=== PATIENT | male | born 1990 | race African-American/Black ===

== ENCOUNTER 2018-11-25 21:24 | Emergency (ER) | payer OTHER ==
[~2018-11-25] VITALS: Ht 185.4 cm; Wt 67.8 kg
[2018-11-25] MEDS ORDERED: LIDOCAINE VISCOUS 2% SOLN 15ML UDC SS ONE (23:15)
[2018-11-25] MEDS ORDERED: KETOROLAC 60 MG/2 ML VIAL (J1885) IM ONE (23:15)
[2018-11-25 23:31] VITALS: BP 118/72
== END 2018-11-25 23:30 | disposition home or self-care (01) ==
LOC: M ED 21:24
DX: J02.9 Acute pharyngitis, unspecified (principal)
CPT/HCPCS: 87880; 96372; 99284; J1885

== ENCOUNTER 2018-11-27 14:19 | Emergency (ER) | payer OTHER ==
[~2018-11-27] VITALS: Ht 185.4 cm; Wt 66.6 kg
[2018-11-27 18:31] LABS: BASO % 0.9 % (0.0-1.0); EOS # 0.1 10^3/uL (0.0-0.50); EOS % 2.7 % (0.0-3.0); HEMATOCRIT 42.1 % (42.0-52.0); HEMOGLOBIN 14.3 g/dl (13.5-17.5); LYMPH # 1.2 10^3/uL (1.5-6.5); LYMPH % 26.7 % (24.0-44.0); MEAN CORPUSCULAR VOLUME 88.3 fl (80.0-96.0); MONO # 0.7 10^3/uL (0.0-0.8); MONO % 15.2 % (0.0-5.0); NEUTROPHILS # 2.4 10^3/uL (1.8-7.7); NEUTROPHILS % 54.3 % (36.0-66.0); PLATELET COUNT, AUTOMATED 301 10^3/uL (150-450); RED BLOOD COUNT 4.77 10^6/uL (4.30-6.10); WHITE BLOOD COUNT 4.4 10^3/uL (4.0-10.0)
[2018-11-27 18:52] LABS: BLOOD UREA NITROGEN 12 MG/DL (7-18); CALCIUM LEVEL 9.6 MG/DL (8.5-10.1); CARBON DIOXIDE LEVEL 30 MEQ/L (21-32); CHLORIDE LEVEL 104 MEQ/L (98-107); CREATININE FOR GFR 0.95 MG/DL (0.70-1.30); GLOMERULAR FILTRATION RATE > 60.0 (>60); GLUCOSE, FASTING 84 MG/DL (70-100); POTASSIUM SERUM 4.4 MEQ/L (3.5-5.1); SODIUM LEVEL 140 MEQ/L (136-145)
[2018-11-27 18:54] LABS: MONO SCRN NEGATIVE (NEGATIVE)
[2018-11-27] MEDS ORDERED: CEFD300CAP PO (19:00)
[2018-11-27 19:07] VITALS: BP 117/67
== END 2018-11-27 19:12 | disposition home or self-care (01) ==
LOC: M ED 14:19
DX: J03.90 Acute tonsillitis, unspecified (principal); Z79.01 Long term (current) use of anticoagulants

== ENCOUNTER 2020-01-27 22:01 | Emergency (ER) | payer OTHER ==
[~2020-01-27] VITALS: Ht 185.4 cm; Wt 74.9 kg
[~2020-01-27 22:01] MED LIST: CEFD300CAP PO
[2020-01-27] MEDS ORDERED: TRAZ-189 PO (22:09)
[2020-01-27] MEDS ORDERED: NAPR220C PO (22:09)
[2020-01-27 23:31] LABS: BASO # 0.1 10^3/uL (0.0-0.2); BASO % 0.6 % (0.0-1.0); EOS % 0.2 % (0.0-3.0); HEMOGLOBIN 14.2 g/dl (13.5-17.5); LYMPH # 0.9 10^3/uL (1.5-5.0); LYMPH % 10.7 % (24.0-44.0); MEAN CORPUSCULAR HEMOGLOBIN 29.3 pg (27.0-33.0); MEAN CORPUSCULAR HGB CONC 33.8 g/dl (32.0-36.5); MEAN CORPUSCULAR VOLUME 86.8 fl (80.0-96.0); MONO # 1.6 10^3/uL (0.0-0.8); MONO % 19.5 % (0.0-5.0); NEUTROPHILS # 5.5 10^3/uL (1.5-8.5); NEUTROPHILS % 68.8 % (36.0-66.0); PLATELET COUNT, AUTOMATED 225 10^3/uL (150-450); RED BLOOD COUNT 4.84 10^6/uL (4.30-6.10)
[2020-01-28 00:03] LABS: BLOOD UREA NITROGEN 8 MG/DL (7-18); CALCIUM LEVEL 8.9 MG/DL (8.5-10.1); CARBON DIOXIDE LEVEL 30 MEQ/L (21-32); CHLORIDE LEVEL 103 MEQ/L (98-107); CREATININE FOR GFR 1.18 MG/DL (0.70-1.30); GLOMERULAR FILTRATION RATE > 60.0 (>60); GLUCOSE, FASTING 81 MG/DL (70-100); POTASSIUM SERUM 3.8 MEQ/L (3.5-5.1); SODIUM LEVEL 139 MEQ/L (136-145)
--- NOTE | 2020-01-28 00:45 | REPVR ---
PROCEDURE INFORMATION: Exam: XR Chest, 1 View Exam date and time: 01/28/2020 12:41 AM Age: 29 years old Clinical indication: Other: Sepsis/ shock; Additional info: Sepsis/shock TECHNIQUE: Imaging protocol: XR of the chest Views: 1 view. COMPARISON: No relevant prior studies available. FINDINGS: Lungs: Degree of lung inflation is normal. No evidence of pulmonary edema. No focal consolidation or parenchymal lung mass. Pleural space: No pleural effusion or pneumothorax. Heart/Mediastinum: Cardiac silhouette appears normal. No adenopathy or hilar mass. Bones/joints: Osseous structures show no concerning abnormality. IMPRESSION: No acute or focal cardiopulmonary process. Electronically signed by: Jesse Pina On 01/28/2020 00:45:46 AM
[2020-01-28] MEDS ORDERED: AUGM875T28 PO (01:53)
[2020-01-28 02:15] VITALS: BP 137/82
[2020-01-28] MEDS ORDERED: AUGMENTIN 875 MG TAB PO ONE (02:15)
--- NOTE | 2020-01-29 08:11 | ECGEPIP ---
[facility] - ED Test Date: 2020-01-28 Pat Name: DELMI PATEL Department: Room: - Gender: Male [employer]: : 1990 Requested By: JEREMY Gallegos Order Number: [id number] Reading MD: Yariel Alonso Measurements Intervals [place] Rate: 102 P: 71 MI: 165 QRS: 88 QRSD: 98 T: 2 QT: 313 QTc: 409 Interpretive Statements SINUS TACHYCARDIA NONSPECIFIC T-WAVE ABNORMALITY NO PRIORS FOR COMPARISON Electronically Signed on 01-29-2020 8:11:34 EDT by Yariel Alonso
== END 2020-01-28 02:24 | disposition home or self-care (01) ==
LOC: M ED 22:01
DX: J06.9 Acute upper respiratory infection, unspecified (principal); R00.0 Tachycardia, unspecified

== ENCOUNTER 2020-03-10 09:45 | Emergency (ER) | payer OTHER ==
[~2020-03-10] VITALS: Ht 185.4 cm; Wt 73.9 kg
[~2020-03-10 09:45] MED LIST changes: +AUGM875T28 PO; +NAPR220C PO; +TRAZ-189 PO
[2020-03-10] MEDS ORDERED: GI COCKTAIL 50ML BTL(HYOSCYAMINE/MAALOX/LIDOCAINE VISCOUS)(1:3:1) PO ONE (10:30)
--- NOTE | 2020-03-10 10:43 | REP ---
INDICATION: midsternal chest pain COMPARISON: 01/28/2020 TECHNIQUE: PA and lateral. FINDINGS: The mediastinum and cardiac silhouette are normal. The lung mesa are clear and without acute consolidation, effusion, or pneumothorax. The skeletal structures are intact and normal. IMPRESSION: No acute cardiopulmonary process. <Electronically signed by Taco Orellana > 03/10/20 1138
[2020-03-10 10:50] LABS: BASO # 0.1 10^3/uL (0.0-0.2); BASO % 0.8 % (0.0-1.0); EOS # 0.5 10^3/uL (0.0-0.5); EOS % 8.3 % (0.0-3.0); HEMATOCRIT 40.7 % (42.0-52.0); HEMOGLOBIN 13.5 g/dl (13.5-17.5); LYMPH # 1.4 10^3/uL (1.5-5.0); LYMPH % 21.8 % (24.0-44.0); MEAN CORPUSCULAR HGB CONC 33.2 g/dl (32.0-36.5); MEAN CORPUSCULAR VOLUME 87.3 fl (80.0-96.0); MONO # 0.9 10^3/uL (0.0-0.8); NEUTROPHILS # 3.4 10^3/uL (1.5-8.5); NEUTROPHILS % 54.9 % (36.0-66.0); PLATELET COUNT, AUTOMATED 229 10^3/uL (150-450); RED BLOOD COUNT 4.66 10^6/uL (4.30-6.10); WHITE BLOOD COUNT 6.2 10^3/uL (4.0-10.0)
[2020-03-10 11:22] LABS: ALT/SGPT 16 U/L (12-78); BILIRUBIN,DIRECT 0.2 MG/DL (0.0-0.2); BILIRUBIN,TOTAL 0.4 MG/DL (0.2-1.0); BLOOD UREA NITROGEN 8 MG/DL (7-18); CALCIUM LEVEL 9.2 MG/DL (8.5-10.1); CARBON DIOXIDE LEVEL 30 MEQ/L (21-32); CHLORIDE LEVEL 106 MEQ/L (98-107); CK-MB VALUE MASS < 1.0 NG/ML (<3.6); CPK CREATINE PHOSPHOKINASE 102 U/L (39-308); CREATININE FOR GFR 0.91 MG/DL (0.70-1.30); GLOMERULAR FILTRATION RATE > 60.0 (>60); GLUCOSE, FASTING 84 MG/DL (70-100); LIPASE 110 U/L (73-393); MB/CK RELATIVE INDEX 0.98 (< OR =4); POTASSIUM SERUM 3.9 MEQ/L (3.5-5.1); SODIUM LEVEL 137 MEQ/L (136-145); TOTAL PROTEIN 7.4 GM/DL (6.4-8.2); TROPONIN I < 0.02 NG/ML (< 0.10)
[2020-03-10] MEDS ORDERED: OMEP-218 PO (11:28)
[2020-03-10 11:33] VITALS: BP 134/77
--- NOTE | 2020-03-10 19:12 | ECGEPIP ---
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
== END 2020-03-10 11:36 | disposition home or self-care (01) ==
LOC: M ED 09:45
DX: R10.13 Epigastric pain (principal); Z79.899 Other long term (current) drug therapy